=== PATIENT | female | born 1950 | race Caucasian/White ===

== ENCOUNTER 2018-03-24 06:09 | Observation (INO) ==
[2018-03-24] MEDS ORDERED: Gelatin Size 100 Topical Foam ONE (06:22)
[2018-03-24] MEDS ORDERED: Bupivacaine/Epinephrine PF Inj 0.5% 30 ML Vial ONE (06:22)
[2018-03-24] MEDS ORDERED: Thrombin Topical Soln 5,000 UNIT Vial TOPICAL ONE (06:22)
[2018-03-24] MEDS ORDERED: Chlorhexidine Gluconate 2% 1 Pack (2 Cloths) TOPICAL ONE (06:39)
[2018-03-24] MEDS ORDERED: Metoprolol Tartrate 25 MG Tablet PO ONE (06:39)
[2018-03-24] MEDS ORDERED: Sodium Chlor 0.9% Inj 500 ML IV.SIG SCH (07:00)
[2018-03-24] MEDS ORDERED: Vancomycin Inj 1,000 MG in Sodium Chlor 0.9% Inj 250 ML IV.SIG ONE (07:00)
[2018-03-24] MEDS ORDERED: Propofol Inj 500 MG/50 ML Vial ONE (07:21)
[2018-03-24] MEDS ORDERED: Glycopyrrolate Inj 1 MG/5 ML Syringe IV.PUSH ONE (08:38)
[2018-03-24] MEDS ORDERED: Succinylcholine Inj 100 MG/5 ML Syringe IV.PUSH ONE (08:38)
[2018-03-24] MEDS ORDERED: Lidocaine PF 1% Inj 5 ML Syringe OTHER ONE (08:38)
[2018-03-24] MEDS ORDERED: Metoprolol Inj 5 MG/5 ML Vial IV.PUSH ONE (08:38)
[2018-03-24] MEDS ORDERED: fentaNYL Citrate Inj 100 MCG/2 ML Ampul ONE (11:11)
[2018-03-24] MEDS ORDERED: *Labetalol HCl Inj 100 MG/20 ML Vial PERIprocedural Use ONLY IV.PUSH ONE ×3 (11:14→11:47)
[2018-03-24] MEDS ORDERED: *HYDROmorphone PF Inj 1 MG/ML Ampul PERIprocedural Use ONLY ONE (11:17)
--- NOTE | 2018-03-24 11:23 | P.OP ---
- Preoperative Diagnosis (1) Degenerative cervical spinal stenosis (2) Degeneration of cervical intervertebral disc (3) Chronic neck pain (4) Cervical radiculopathy Date of procedure: 03/24/18 Procedure: Anterior cervical C5-6 microdiscectomy with interbody fusion; anterior C5-6 cervical plate placement; C5-6 interbody cage placement; microsurgical technique Anesthesia: TAMMY Surgeon: Darnell aNils MD Neuropsychologist: Dora Rodriguez Estimated blood loss (mL): 30 Operation and Findings: Following administration of general endotracheal anesthesia with the neck in a [place] collar in a neutral position, the patient received a gram of vancomycin and Decadron 10 mg intravenously. Sequential compression devices were placed in supine position on a Nate table and all pressure points adequately padded. The head secured in a donut and anterior cervical region then shaved and prepped with Chloraprep and sterilely draped with Ioban along with the usual sterile draping. A transverse skin incision on the left side of the neck was then made after infiltrating the skin with 0.5% Marcaine with epinephrine solution extending down through the platysma. At the anterior border of the sternocleidomastoid further dissection was undertaken developing a plane between the carotid sheath laterally and the trachea esophagus medially. The prevertebral fascia was exposed and dissected out. The medial attachments of the longus colli muscles were detached and a self-retaining retractor used for exposure. The C5-6 disc space was localized with a marking the disc space and using lateral fluoroscopy. [place] distraction screws 14 mm length were placed one in the C5 and one in the C6 body interbody distraction and exposure. There was significant disc degeneration with disc height collapse and anterior osteophytes noted at the C5-6 level and the osteophytes were resected with a Leksell and annulus incised with a 15 blade and further dissection undertaken using microtechnique with microscope magnification. Diskectomy was undertaken with pituitaries and the endplates were also decorticated with curettes and drill bit. And more posteriorly there was disk osteophyte complex compressing the thecal sac along with a significant uncovertebral joint hypertrophy with foraminal stenosis which was decompressed along with removal of the posterior longitudinal ligaments at both levels. The foramen was decompressed bilaterally using a Kerrison's and palpation with a nerve hook, the exiting nerve roots were felt to be free. The area was then copiously irrigated. I then placed a Peek cage packed with local autograft bone at the C5-6 interspace under fluoroscopy guidance. [place] distraction pins were removed and the holes plugged with Gelfoam for hemostasis. In order to facilitate the fusion and provide stabilization, a Precision spine cervical Uniplate was then placed with 14 mm variable angle screw in the C5 body and 14 mm fixed angle screw in the C6 body. The plate screw locking mechanism was then engaged. AP and lateral fluoroscopy confirmed good placement of the construct and the retractor was then removed. Muscular bleeding points were cauterized with bipolar cautery and Gelfoam was then also used for hemostasis which was removed. The platysma was then approximated using 3-0 Vicryl interrupted stitches and 3-0 Vicryl subcuticular stitch also placed in an interrupted fashion, and final skin closure was with Mastisol and Steri-Strips. Sterile dressing was then applied. The [place] collar was then replaced and the patient was then extubated and taken to the recovery room. There are no intraoperative complications and all sponge and needle counts were correct at the end of procedure. Estimated blood loss was about 30 cc. The patient did undergo intraoperative neurologic monitoring which remained stable throughout the surgery.
[2018-03-24] MEDS ORDERED: HYDROmorphone PF Inj 1 MG/ML Ampul ONE ×2 (11:39→11:51)
--- NOTE | 2018-03-24 11:51 | XR ---
EXAM DATE: 03/24/2018 11:45 AM EDT AGE/SEX: 67 years / Female INDICATIONS: Fusion C5,C6 with screws and plate placement. CLINICAL DATA: This is the patient's initial encounter. Patient reports that signs and symptoms have been present for 1 day and indicates a pain score of Nonresponsive. MEDICAL/SURGICAL HISTORY: None. None. COMPARISON: [facility], [place] [facility], 09/14/2015. . FINDINGS: Single fluoroscopic spot film shows anterior cervical fusion at C5-C6 with plate and hardware. Anatomic alignment. CONCLUSION: Anatomic alignment. Electronically signed by: Hank Benitez MD 03/24/2018 11:50 AM EDT
[2018-03-24] MEDS ORDERED: Bisacodyl 10 MG Supp RECTAL PRN (12:15)
[2018-03-24] MEDS ORDERED: Menthol 5.8 MG Lozenge BUCCAL PRN (12:16)
[2018-03-24] MEDS ORDERED: Aluminum/Magnesium/Simethacone Susp 30 ML UDC PO PRN (12:16)
[2018-03-24] MEDS ORDERED: HYDROmorphone PF Inj 1 MG/ML Ampul IV.PUSH PRN (12:45)
[2018-03-24] MEDS ORDERED: Verapamil SR 240 MG Tablet PO SCH ×2 (13:30→21:00)
[2018-03-24] MEDS: ceFAZolin 1 GM Premix Inj 1 GM/50 ML IV.SIG SCH ×2 (13:35→21:03)
[2018-03-24] MEDS: Baclofen 10 MG Tablet PO SCH ×2 (13:57→17:00)
[2018-03-24] MEDS: Gabapentin 300 MG Capsule PO SCH ×2 (14:42→17:00)
[2018-03-24] MEDS: Sod Chloride 0.9% Inj 1,000 ML IV.SIG SCH (16:32)
[2018-03-24] MEDS ORDERED: Zolpidem Tartrate 5 MG Tablet PO PRN (21:00)
[2018-03-24] MEDS: Pregabalin 75 MG Capsule PO SCH (21:02)
[2018-03-24] MEDS: Prazosin HCl 1 MG Capsule PO SCH (21:02)
[2018-03-24] MEDS: Senna/Docusate Sodium 8.6/50 MG Tablet PO SCH (21:03)
[2018-03-25] MEDS: ceFAZolin 1 GM Premix Inj 1 GM/50 ML IV.SIG SCH (05:42)
[2018-03-25] MEDS: Gabapentin 300 MG Capsule PO SCH ×2 (08:03→13:32)
[2018-03-25] MEDS: Senna/Docusate Sodium 8.6/50 MG Tablet PO SCH (08:03)
[2018-03-25] MEDS: Baclofen 10 MG Tablet PO SCH ×2 (08:03→13:31)
[2018-03-25] MEDS: Pregabalin 75 MG Capsule PO SCH (08:04)
[2018-03-25] MEDS: Prazosin HCl 1 MG Capsule PO SCH (08:04)
[2018-03-25] MEDS: Sod Chloride 0.9% Inj 1,000 ML IV.SIG SCH (08:20)
[2018-03-25] MEDS ORDERED: Pantoprazole Sodium 20 MG DR Tablet PO SCH (09:00)
[2018-03-25] MEDS ORDERED: Sertraline 100 MG Tablet PO SCH (09:00)
[2018-03-25] MEDS ORDERED: NP THYROID 60 MG PO SCH (09:00)
--- NOTE | 2018-03-25 13:09 | P.PNNS ---
Subjective Interval history: Pt awake and alert. States feeling better. Mild incisional discomfort. No radiculopathy in UEs. She was having some itching but resolved with Benadryl. No difficulty swallowing. She states currently she is having urinary incontinence. <EleonoraGeorge - Last Filed: 03/25/18 13:12> Physical Exam Vital signs: Vital Signs 03/24/18 15:36 03/24/18 16:33 03/24/18 17:00 Temperature 98 F Pulse Rate 94 H Respiratory Rate 15 15 16 Blood Pressure 143/70 H Pulse Oximetry 96 03/24/18 19:25 03/24/18 23:45 03/25/18 04:10 Temperature 98.2 F 98.0 F 98.6 F Pulse Rate 104 H 110 H 106 H Respiratory Rate 15 15 16 Blood Pressure 142/71 H 139/68 119/68 Pulse Oximetry 96 96 94 L 03/25/18 08:00 Temperature 98.3 F Pulse Rate 95 H Respiratory Rate 12 Blood Pressure 122/64 Pulse Oximetry 96 Intake & Output 03/24/18 03/25/18 03/25/18 18:59 06:59 18:59 Intake Total 2071 / 2071 1250 / 1250 1050 / 1050 Output Total 0 / 0 Balance 2041 / 2041 1250 / 1250 1050 / 1050 Weight 85.8 kg 85.8 kg Intake: IV 50 / 50 50 / 50 1050 / 1050 NS + KCl 20 mEq Inj 1,000 ML @ 1000 / 1000 100 mls/hr IV.CONT .Q10H [facility] Rx #:[id number] Ancef 1 GM Premix Inj 1 gm In 50 / 50 50 / 50 50 / 50 50 ml @ 100 mls/hr IV.SIG Q8H [facility] Rx#:[id number] Oral 522 / 522 1200 / 1200 Anesthesia Amount 1500 / 1500 Output: Urine 0 / 0 Estimated Blood Loss Other: # Voids 4 1 # Incontinent Voids 1 Date of Last Bowel Movement 03/24/18 03/25/18 # Bowel Movements 1 Weight On Admission 85.8 kg - Constitutional no acute distress - Routine HEENT Exam Head: Present: normocephalic Eye: Present: PERRL - Routine Neck Exam Present: trachea midline. Absent: swelling Comments: Anterior cervical incision clean and dry. No signs of infection or complication. - Routine Respiratory Exam Present: CTA bilaterally. Absent: respiratory distress, rhonchi, wheezes - Routine Cardiovascular Exam Present: RRR, S1, S2. Absent: murmur - Routine Abdominal Exam Present: soft, normoactive bowel sounds. Absent: distended, firm - Routine Skin Exam Absent: cyanosis, erythema Comments: Incision clean and dry without signs of infection or complication. - Routine Neurological Exam Present: alert, oriented X3, moving all extremities. Absent: sensory deficit, motor deficit, altered mental status - Routine Psychiatric Exam Present: normal affect. Absent: anxious, agitated <George Crews - Last Filed: 03/25/18 13:12> Vital signs: Vital Signs 03/24/18 15:36 03/24/18 16:33 03/24/18 17:00 Temperature 98 F Pulse Rate 94 H Respiratory Rate 15 15 16 Blood Pressure 143/70 H Pulse Oximetry 96 03/24/18 19:25 03/24/18 23:45 03/25/18 04:10 Temperature 98.2 F 98.0 F 98.6 F Pulse Rate 104 H 110 H 106 H Respiratory Rate 15 15 16 Blood Pressure 142/71 H 139/68 119/68 Pulse Oximetry 96 96 94 L 03/25/18 08:00 03/25/18 13:30 Temperature 98.3 F Pulse Rate 95 H Respiratory Rate 12 18 Blood Pressure 122/64 Pulse Oximetry 96 Intake & Output 03/24/18 03/25/18 03/25/18 18:59 06:59 18:59 Intake Total 2071 1250 / 1250 1050 / 1050 Output Total 30 30 0 / 0 Balance 2041 1250 / 1250 1050 / 1050 Weight 85.8 kg 85.8 kg Intake: IV 50 / 50 50 / 50 1050 / 1050 NS + KCl 20 mEq Inj 1,000 ML @ 1000 / 1000 100 mls/hr IV.CONT .Q10H [facility] Rx #:[id number] Ancef 1 GM Premix Inj 1 gm In 50 / 50 50 / 50 50 / 50 50 ml @ 100 mls/hr IV.SIG Q8H [facility] Rx#:[id number] Oral 522 / 522 1200 / 1200 Anesthesia Amount 1500 / 1500 Output: Urine 0 / 0 Estimated Blood Loss 30 / 30 Other: # Voids 4 1 # Incontinent Voids 1 Date of Last Bowel Movement 03/24/18 03/25/18 # Bowel Movements 1 Weight On Admission 85.8 kg <Darnell Nails - Last Filed: 03/25/18 14:04> Assessment and Plan - Assessment (1) Degenerative cervical spinal stenosis Code(s): M48.02 - Spinal stenosis, cervical region Status: Chronic (2) Degeneration of cervical intervertebral disc Code(s): M50.30 - Other cervical disc degeneration, unspecified cervical region Status: Chronic (3) Chronic neck pain Code(s): M54.2 - Cervicalgia; G89.29 - Other chronic pain Status: Chronic (4) Cervical radiculopathy Code(s): M54.12 - Radiculopathy, cervical region Status: Chronic - Plan 67 y/o FM s/p C5/C6 ACF. Pt doing well and ambulating. P: She states she is doing well and wants to go home She states Dr. Nails had recommended an evaluation with urology outpatient. Benadryl prn for itching. Follow up as scheduled. <George Crews - Last Filed: 03/25/18 13:12> - Attending Attestation The exam, history, and the medical decision-making described in the above note were completed with the assistance of the mid-level provider. I reviewed and agree with the findings presented. I attest that I had a [id number] encounter with the patient on the same day, and personally performed and documented my assessment and findings in the medical record. <Darnell Nails - Last Filed: 03/25/18 14:04>
== END 2018-03-25 15:03 | disposition home or self-care (01) ==
LOC: HSDC 06:09 → HPAC 06:09 → N06 15:54
PROVIDERS: ADMIT Neurological Surgery; ATTEND Neurological Surgery